=== PATIENT | male | born 1965 | race Caucasian/White ===

== ENCOUNTER 2016-08-12 13:25 | Inpatient (IN) | payer BC, OTHER ==
[~2016-08-12] VITALS: Ht 170.2 cm; Wt 87.5 kg
[2016-08-12] VITALS (7 sets, daily range): BP systolic 108–133; BP diastolic 64–90
--- NOTE | ~2016-08-12 | EKG ---
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
--- NOTE | ~2016-08-12 | EKG ---
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
--- NOTE | ~2016-08-12 | EKG ---
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
--- NOTE | ~2016-08-12 | D ---
[facility] [place] [address] DISCHARGE SUMMARY Name: KHADAR KIM Room #: 202-P [facility] IN M.R.#: [id number] Admission: 08/12/16 Attend Phys: Era Mcpherson MD Discharge: 08/13/16 Date of : 65 Report #: [id number] THIS REPORT FOR: //name// CC: Negrito Mcpherson DATE OF SERVICE: 08/13/2016 DATE OF ADMISSION: 08/12/2016 DATE OF DISCHARGE: 08/13/2016 DISCHARGE DIAGNOSES: 1. Unstable angina status post PCI with drug-eluting stent to restenotic LAD. 2. Hypertension. 3. Dyslipidemia. 4. Diabetes, uncontrolled. PROCEDURES: He had a left heart catheterization with drug-eluting stent deployment to restenotic LAD. HOSPITAL COURSE: The patient is a 50-year-old male with a history of coronary artery disease status post stent placement in January of last year to his LAD, currently on aspirin and Effient presented to the ER secondary to chest pain. Please see details of admission dictated by ____ on 08/12/2016. The patient had symptoms of acute coronary syndrome. Cardiology was consulted. He underwent a heart catheterization with results as above. Today, he is now chest pain free and doing much better. He denies any other complaints. Cardiology has cleared him for discharge, I spoke with cardiology. DISCHARGE DISPOSITION: To home. DISCHARGE PHYSICAL EXAMINATION: VITAL SIGNS: Temperature of 36, pulse of ____, blood pressure 129/81, O2 sat is 96% on room air. GENERAL: He is awake, alert, answering question appropriately, no acute respiratory distress. HEENT: Normocephalic, atraumatic. NECK: Supple. Pupils equal. CARDIOVASCULAR: Regular rate and rhythm. No murmurs. LUNGS: Clear to auscultation bilaterally. No crackles or wheeze. ABDOMEN: Soft, no distention, no tenderness. Groin site is clean, dry and intact. EXTREMITIES: No edema. NEUROLOGIC: Nonfocal. [facility] [address] [place] [address] DISCHARGE SUMMARY Name: KHADAR KIM Room #: 202-[facility] IN M.R.#: [id number] Admission: 08/12/16 Attend Phys: Era Mcpherson MD Discharge: 08/13/16 Date of : 65 Report #: [id number] DISCHARGE MEDICATIONS: Januvia 100 mg daily, metformin 500 b.i.d., he will restart that tomorrow that has been placed in his discharge instructions in [address] and the nurses also reiterated to resume the other medications, Lipitor 80 daily, losartan/HCTZ 50/12.5 one daily, Effient 10 daily. He has been given new samples. Metoprolol 50 daily, aspirin 325 daily, Nitrostat p.r.n., ____ 10 daily, Imdur 30 daily, he will stop his Actos. DISCHARGE INSTRUCTIONS: CBC, CMP in 1 week. Follow up with primary care in 1 week. Follow up with cardiology on 08/22. He will have 2 weeks off of work and dressing to be kept clean, dry. Discharge plan took 40 minutes. I explained to him discharge diagnoses, treatment plan and appropriate followup in detail. He had no further questions. By: 1152 1307 My Sumi Mcpherson MD /nt
--- NOTE | ~2016-08-12 | CATHLAB ---
[facility] [place] [address] INVASIVE PROCEDURE REPORT Name: KHADAR KIM Room #: 202-P [facility] IN .R.#: [id number] Admission: 08/12/16 Attend Phys: Era Mcpherson MD Discharge: 08/13/16 Date of : 65 Date of Service: 08/12/16 1742 Report #: [id number] THIS REPORT FOR: //name// CC: Negrito Mcpherson DATE OF SERVICE: 08/12/2016 INDICATIONS: Acute coronary syndrome. Full risks, benefits and alternatives of cardiac catheterization were explained to the patient. All questions were answered. Informed consent was obtained. The right groin area was prepped and draped in a sterile manner. Lidocaine was given subcutaneously. A 4-Greenlandic sheath was inserted into the right femoral artery via modified Seldinger technique. CORONARY ANATOMY: The left main is a large caliber vessel, with no flow-limiting lesions. The LAD is a moderate sized caliber vessel, travelling down the anterior wall and wrapping around the apex. There was a stent in the mid segment with severe restenosis, at least 80% involving the proximal and distal edges of the stent as well as within the stent. Within the stented area is a takeoff of a small to moderate sized caliber first diagonal artery. The ostium of the first diagonal artery is jailed with a 70% stenosis. This is unchanged from his initial procedure. There is a ramus artery of moderate size caliber, with mild disease proximally. The left circumflex artery gives off one obtuse marginal artery. The obtuse marginal artery has mild disease. The RCA is a dominant vessel supplying a PDA and several posterolateral branches. There were no flow-limiting lesions in the RCA. Within the mid segment of the RCA, there is mild disease, 30%. Left ventriculogram was performed revealing a normal ejection fraction, EF of 55%. The LVEDP is approximately 18 mmHg. There is no gradient across the outflow tract. ANGIOPLASTY REPORT: A 6-Greenlandic system was used. The patient was given Angiomax. I placed a Luge wire down the LAD and a Luge wire into the first diagonal artery. The ostial stenosis in the first diagonal artery was dilated with a 2.5 mm Euphora balloon, inflated up to 8 atmospheres. The restenotic [facility] [address] [place] [address] INVASIVE PROCEDURE REPORT Name: KHADAR KIM Room #: 202-P [facility] IN [facility]#: [id number] Admission: 08/12/16 Attend Phys: Era Mcpherson MD Discharge: 08/13/16 Date of : 65 Date of Service: 08/12/16 1742 Report #: [id number] area was predilated with a 2.5 mm balloon. There was still significant residual stenosis. I elected to cover this area with a 3.0 x 28 mm Xience Alpine stent (drug-eluting stent), inflated up to 10 atmospheres. This stent was postdilated with a 3.25 mm ____ balloon, MD [place]. The second half of the stent was inflated up to 15 atmospheres. The more proximal segment of the stent was postdilated up to 20 atmospheres. Final injections revealed ANDRES 3 blood flow in the LAD with a less than 10% residual stenosis. At the end of the procedure, a closure device was used. IMPRESSION: 1. Successful insertion of a drug-eluting stent into the restenotic area in the LAD. 2. Mild disease in the RCA and ramus artery. 3. Normal LV systolic function. 4. Recommend dual antiplatelet therapy for at least 1 year. <ELECTRONICALLY SIGNED> By: Ag Polo MD 08/14/16 0804 1742 0157 Ag Polo MD /nt
[~2016-08-12 13:25] MED LIST: ASPIR 8181 MG PO; ASPIRIN325 PO; ATORVASTATIN CA80 MG PO; EFFIENT10 MG PO; JANUVIA100 MG PO; LOSARTAN-HCTZ1 EACH PO; METFORMIN HCL500 MG PO; METOPROLOL SUCC50 MG PO; NITROGLYCERIN0.4 MG SUBLING
[2016-08-12] MEDS ORDERED: IMDUR 30 MG TAB30 M1 PO (13:29)
[2016-08-12] MEDS ORDERED: JARDIANCE10 MG PO (13:29)
[2016-08-12] MEDS ORDERED: PIOGLITAZONE15 MG (13:30)
[2016-08-12 13:45] LABS: ABSOLUTE NEUTROPHILS 3.6 thou/uL (1.4-8.2); BASOPHILS 1.1 % (0.0-2.0); EOSINOPHILS 3.3 % (0.0-3.0); HEMATOCRIT 41.9 % (42.0-52.0); HEMOGLOBIN 14.6 gm/dL (14.0-18.0); LYMPHOCYTES 40.6 % (24.0-44.0); MCH 29.9 pg (26.0-34.0); MCHC 34.9 g/dL (28.0-37.0); MCV 85.7 fL (80.0-100.0); MONOCYTES 7.3 % (1.0-8.0); PLATELET COUNT 210 thou/uL (150-400); POLYS 47.7 % (36.0-66.0); RBC 4.89 mil/uL (4.50-6.00); RDW 14.8 % (10.5-14.5); WBC 7.5 thou/uL (4.0-11.0)
[2016-08-12 13:46] LABS: MANUAL DIFF NO
[2016-08-12 13:56] LABS: ANION GAP 12 mmol/L (7-16); BUN 22 mg/dL (7-18); CALCIUM 8.6 mg/dL (8.5-10.1); CHLORIDE 99 mmol/L (98-107); CO2 24 mmol/L (21-32); CREATININE 1.1 mg/dL (0.6-1.3); GLUCOSE 314 mg/dL (70-99); POTASSIUM 3.5 mmol/L (3.5-5.1); SODIUM 135 mmol/L (136-145)
[2016-08-12 14:04] LABS: TROPONIN-I < 0.04 ng/mL (<0.04-0.07)
[2016-08-12 14:54] LABS: PROTIME 10.8 Seconds (9.3-11.4)
[2016-08-12 15:31] LABS: CHOLESTEROL 200 mg/dL (<200); HDL CHOLESTEROL 39 mg/dL (>40); LDL CHOLESTEROL 88 mg/dL (<100); SERUM ASSESSMENT Clear; TC:HDL 5.1 Ratio (Not establshd); TRIGLYCERIDE 366 mg/dL (<150); VLDL 73 mg/dL (<40)
[2016-08-13 00:50] LABS: HEMATOCRIT 41.7 % (42.0-52.0); HEMOGLOBIN 14.5 gm/dL (14.0-18.0); MCH 29.8 pg (26.0-34.0); MCHC 34.7 g/dL (28.0-37.0); MCV 85.8 fL (80.0-100.0); RBC 4.85 mil/uL (4.50-6.00); RDW 14.7 % (10.5-14.5)
[2016-08-13 01:03] LABS: ALBUMIN 3.4 g/dL (3.4-5.0); ALKALINE PHOSPHATASE 121 U/L (46-116); ANION GAP 8 mmol/L (7-16); BUN 17 mg/dL (7-18); CALCIUM 8.5 mg/dL (8.5-10.1); CHLORIDE 105 mmol/L (98-107); CO2 25 mmol/L (21-32); CREATININE 1.1 mg/dL (0.6-1.3); GLUCOSE 141 mg/dL (70-99); MAGNESIUM 1.7 mg/dL (1.8-2.4); POTASSIUM 3.5 mmol/L (3.5-5.1); SGOT 32 U/L (15-37); SGPT 79 U/L (30-65); SODIUM 138 mmol/L (136-145); TOTAL BILIRUBIN 0.4 mg/dL (<0.1-1.0); TOTAL PROTEIN 7.1 g/dL (6.4-8.2); TROPONIN-I < 0.04 ng/mL (<0.04-0.07)
[2016-08-13 04:04] VITALS: BP 105/64
[2016-08-13 08:08] VITALS: BP 129/81
[2016-08-13 10:14] VITALS: BP 129/81
== END 2016-08-13 11:28 | disposition home or self-care (01) | DRG 247 ==
LOC: ER 13:25 → EROBS 14:29 → 2N 15:20
PROVIDERS: Emergency Medicine; Internal Medicine Cardiovascular Disease; Nurse Practitioner; Nurse Practitioner Gerontology
DX: T82.855A Stenosis of coronary artery stent, initial encounter (principal); I25.110 Atherosclerotic heart disease of native coronary artery with unstable angina pectoris; I10 Essential (primary) hypertension; E78.5 Hyperlipidemia, unspecified; E78.00 Pure hypercholesterolemia, unspecified; E11.65 Type 2 diabetes mellitus with hyperglycemia; Z87.891 Personal history of nicotine dependence; Z82.49 Family history of ischemic heart disease and other diseases of the circulatory system; Z86.73 Personal history of transient ischemic attack (TIA), and cerebral infarction without residual deficits; Z79.899 Other long term (current) drug therapy; Z79.82 Long term (current) use of aspirin
CPT/HCPCS: 10194

== ENCOUNTER → 2017-01-13 | Outpatient (CLI) | payer BC, OTHER ==
[~2017-01-13] MED LIST changes: +IMDUR 30 MG TAB30 M1 PO; +JARDIANCE10 MG PO; +PIOGLITAZONE15 MG
== END ==
LOC: CAT 12:51
DX: R51 Headache (principal)

== ENCOUNTER → 2020-03-24 | Outpatient (CLI) | payer BC, OTHER | LOC: SJCVCIMAG 07:51 | PROVIDERS: ATTEND Internal Medicine | DX: I25.10 Atherosclerotic heart disease of native coronary artery without angina pectoris (principal); I10 Essential (primary) hypertension; E11.9 Type 2 diabetes mellitus without complications ==